=== PATIENT | female | born 1945 | race Caucasian/White ===

== ENCOUNTER 2017-06-10 18:29 | Emergency (ER) | payer MEDICARE, BC ==
[~2017-06-10] VITALS: Ht 170.2 cm; Wt 72.6 kg
[2017-06-10] MEDS ORDERED: BROMOCRIPTINE 5 MG (19:09)
[2017-06-10] MEDS ORDERED: ketorolac trometh. 30mg/ml inj. IM STA (20:41)
[2017-06-10 20:52] LABS: CLARITY,URINE SLIGHTLY CLOUDY (Clear); COLOR,URINE YELLOW (Yellow); GLUCOSE, URINE NEGATIVE (Neg); KETONES,URINE NEGATIVE (Neg); LEUKOCYTE ESTERASE ,URINE TRACE (Neg); NITRITES, URINE NEGATIVE (Neg); OCCULT BLOOD,URINE TRACE-INTACT (Neg); PH,URINE 6.5 (4.8-8.0); PROTEIN,URINE NEGATIVE (Neg); UROBILINOGEN,URINE 0.2 E.U/dL (0.2-1.0)
[2017-06-10 20:59] LABS: UA COLLECTION TYPE CLN CATCH MIDSTREAM
[2017-06-10 21:24] LABS: BACTERIA,URINE 1+ /HPF (Neg); MUCUS STRANDS MODERATE /LPF (Neg); RBC,URINE 0-2 /HPF (0-2); SQUAMOUS EPITHELIAL CELL,UR MODERATE /LPF (FEW)
[2017-06-10] MEDS ORDERED: IBUP-1984 PO (21:32)
[2017-06-10] MEDS ORDERED: CIPR-230 PO (21:32)
[2017-06-10] MEDS ORDERED: PANT-47 PO (21:32)
[2017-06-10] MEDS ORDERED: CYCL-1 PO (21:36)
[2017-06-10 21:44] VITALS: BP 156/88
== END 2017-06-10 21:46 | disposition home or self-care (01) ==
LOC: ER 18:30
DX: S39.012A Strain of muscle, fascia and tendon of lower back, initial encounter (principal); N30.00 Acute cystitis without hematuria; R10.31 Right lower quadrant pain; E78.00 Pure hypercholesterolemia, unspecified; G89.29 Other chronic pain; Z87.442 Personal history of urinary calculi; Z98.890 Other specified postprocedural states; X50.9XXA Other and unspecified overexertion or strenuous movements or postures, initial encounter; Y93.89 Activity, other specified; Y92.89 Other specified places as the place of occurrence of the external cause; Y99.9 Unspecified external cause status
CPT/HCPCS: 81001; 87088; 96372; 99284; J1885

== ENCOUNTER 2022-10-11 16:50 | Emergency (ER) | payer MEDICARE, BC ==
[~2022-10-11] VITALS: Ht 171.4 cm; Wt 76.2 kg
[~2022-10-11 16:50] MED LIST: BROMOCRIPTINE 5 MG; CYCL-1 PO; PANT-47 PO
[2022-10-11 19:45] VITALS: BP 137/73; PULSE 64; RESP 18; TEMP 97.5; O2SAT 99
== END 2022-10-11 22:26 | disposition home or self-care (01) ==
LOC: ER 16:51
DX: S05.12XA Contusion of eyeball and orbital tissues, left eye, initial encounter (principal); S60.211A Contusion of right wrist, initial encounter; E78.00 Pure hypercholesterolemia, unspecified; G89.29 Other chronic pain; M54.9 Dorsalgia, unspecified; Z79.899 Other long term (current) drug therapy; Z87.442 Personal history of urinary calculi; W18.39XA Other fall on same level, initial encounter; Y93.89 Activity, other specified; Y99.8 Other external cause status; Y92.89 Other specified places as the place of occurrence of the external cause
CPT/HCPCS: 70450; 70486; 72125; 99284

== ENCOUNTER 2024-01-17 18:06 | Emergency (ER) | payer MEDICARE, BC ==
[~2024-01-17] VITALS: Ht 170.2 cm; Wt 69.5 kg
[2024-01-17 18:12] VITALS: BP 105/55; PULSE 70; TEMP 97.9; O2SAT 98
[2024-01-17] MEDS ORDERED: HYDR-3965 PO (20:14)
[2024-01-17] MEDS ORDERED: ONDA-243 PO (20:14)
[2024-01-17] MEDS: ondansetron 4mg rapidly disintigrating tab PO ONE (20:24)
[2024-01-17 20:25] VITALS: RESP 16
[2024-01-17] MEDS: HYDROcodone/acetaminophen 5mg/325mg tablet PO ONE (20:25)
== END 2024-01-17 21:09 | disposition home or self-care (01) ==
LOC: ER 18:06
DX: I87.8 Other specified disorders of veins (principal); E78.00 Pure hypercholesterolemia, unspecified; G89.29 Other chronic pain; Z79.899 Other long term (current) drug therapy; Z87.440 Personal history of urinary (tract) infections
CPT/HCPCS: 99283

== ENCOUNTER 2024-02-02 23:43 | Emergency (ER) | payer MEDICARE, BC ==
[~2024-02-02] VITALS: Ht 170.2 cm; Wt 72.6 kg
[~2024-02-02 23:43] MED LIST changes: +ONDA-243 PO
[2024-02-02 23:45] VITALS: TEMP 98.2
[2024-02-03] MEDS: TETanus/Pertussis (Acell)/Diphther VAC/PF (Tdap-Adult) 0.5ml syringe IMVAC ONE (01:59)
[2024-02-03 02:47] VITALS: BP 120/61; PULSE 59; RESP 12; O2SAT 98
== END 2024-02-03 02:50 | disposition home or self-care (01) ==
LOC: ER 23:43
DX: S51.812A Laceration without foreign body of left forearm, initial encounter (principal); E78.00 Pure hypercholesterolemia, unspecified; G89.29 Other chronic pain; M54.9 Dorsalgia, unspecified; Z87.442 Personal history of urinary calculi; Z98.890 Other specified postprocedural states; Z79.899 Other long term (current) drug therapy; X58.XXXA Exposure to other specified factors, initial encounter; Y93.89 Activity, other specified; Y92.89 Other specified places as the place of occurrence of the external cause; Y99.8 Other external cause status
CPT/HCPCS: 90715; 99283; A6223; A6402; A6449; G0008; J7030; 90471